=== PATIENT | female | born 1975 | race Caucasian/White ===

== ENCOUNTER → 2021-03-25 | Outpatient (CLI) | payer OTHER ==
--- NOTE | 2021-03-25 09:49 | REP ---
INDICATION: CALCULUS OF KIDNEY COMPARISON: None. TECHNIQUE: CT Scan of the abdomen and pelvis was performed without intravenous contrast. Sagittal and coronal reconstruction images performed. FINDINGS: Lung bases: Unremarkable. Liver: Grossly unremarkable. Gallbladder: Unremarkable. Spleen: Grossly unremarkable. Adrenals: Normal. Pancreas: Grossly unremarkable.. Kidneys: There is a 1.3 cm hypodensity in the upper pole the right kidney measuring close to water density and probably representing a cyst. A punctate intrarenal calculus is seen in the upper pole the right kidney, and there are 3 calculi in the lower pole the right kidney measuring up to 3 mm in diameter. In the upper pole the left kidney there are 2 punctate intrarenal calculi. In the mid aspect of the left kidney a punctate calcification is seen as well as a 3 mm calculus. A cluster of multiple calculi are seen in the lower pole the left kidney, the largest measures 9 mm maximally. There is no hydroureteronephrosis. No ureteral calculus is seen. Small and large bowel: There is sigmoid diverticulosis without acute diverticulitis. Free fluid: None. Abdominal aorta: No aneurysm. Adenopathy: None. Appendix: Not inflamed. Osseous structures: Unremarkable. Pelvis: No mass. No bladder calculus seen. IMPRESSION: Cyst upper pole right kidney. Multiple bilateral intrarenal calculi as discussed in detail above. <Electronically signed by Shayne Dey > 03/25/21 [id number]
== END ==
LOC: M PLAIMG 08:52
PROVIDERS: ATTEND Physician Assistant
DX: N20.0 Calculus of kidney (principal); K57.30 Diverticulosis of large intestine without perforation or abscess without bleeding; N28.1 Cyst of kidney, acquired

== ENCOUNTER → 2022-01-05 | Outpatient (REF) | payer OTHER | LOC: M CARPUL 09:12 → EDSTATUS 09:30 → M CARPUL 09:30 | PROVIDERS: ATTEND Internal Medicine | DX: R00.2 Palpitations (principal) ==

== ENCOUNTER → 2022-01-17 | Outpatient (REF) | LOC: M PLAIMG 14:36 | PROVIDERS: ATTEND Internal Medicine | DX: R06.02 Shortness of breath (principal); M51.37 Other intervertebral disc degeneration, lumbosacral region ==

== ENCOUNTER → 2025-03-23 | Outpatient (CLI) | payer OTHER | LOC: M WHC 16:04 | PROVIDERS: ATTEND Nurse Practitioner Family | DX: Z12.31 Encounter for screening mammogram for malignant neoplasm of breast (principal); R92.323 Mammographic fibroglandular density, bilateral breasts ==